=== PATIENT | male | born 1995 | race American Indian/Alaskan Native ===

== ENCOUNTER 2016-10-21 18:50 | Emergency (ER) | payer OTHER ==
[~2016-10-21] VITALS: Ht 182.9 cm; Wt 99.8 kg
[~2016-10-21 18:50] MED LIST: FLOMAX0.4 MG PO; LEVAQUIN500 MG PO; PERCOCET 5-3251 EACH PO; PYRIDIUM200 MG PO; RISPERDAL0.5 MG PO; RISPERIDONE1 MG PO; WELLBUTRIN XL150 MG PO; WELLBUTRIN XL300 MG PO
== END 2016-10-22 07:00 | disposition home or self-care (01) ==
LOC: ED 18:50
PROC: 4A0D7LZ Measurement of Urinary Volume, Via Natural or Artificial Opening (ICD-10-PCS; principal; 2016-10-21)
DX: Z00.01 Encounter for general adult medical examination with abnormal findings (principal); F10.129 Alcohol abuse with intoxication, unspecified; Y90.6 Blood alcohol level of 120-199 mg/100 ml; F32.9 Major depressive disorder, single episode, unspecified; Z87.442 Personal history of urinary calculi
CPT/HCPCS: 51798; 80053; 80176; 81001; 84443; 85025; 96360; 96361; 99283; G0480; J7030

== ENCOUNTER 2017-02-05 00:28 | Emergency (ER) | payer OTHER ==
[~2017-02-05] VITALS: Ht 182.9 cm; Wt 90.7 kg
== END 2017-02-05 01:52 | disposition home or self-care (01) ==
LOC: ED 00:28
DX: S50.01XA Contusion of right elbow, initial encounter (principal); F17.200 Nicotine dependence, unspecified, uncomplicated; Z87.442 Personal history of urinary calculi; W01.0XXA Fall on same level from slipping, tripping and stumbling without subsequent striking against object, initial encounter
CPT/HCPCS: 73080; 99283

== ENCOUNTER 2018-04-21 15:51 | Emergency (ER) | payer OTHER ==
[~2018-04-21] VITALS: Ht 182.9 cm; Wt 90.7 kg
--- NOTE | 2018-04-21 23:23 | EKG ---
[facility] [address] [facility] [place] [address] Signed Normal sinus rhythm ST abnormality and T wave inversion in Lead 3. Abnormal ECG When compared with ECG of 24-JUN-2016 18:54, Borderline criteria for Inferior infarct are now present Inverted T waves have replaced nonspecific T wave abnormality in Inferior leads T wave amplitude has decreased in Anterior leads Confirmed by BALWINDER LINK MD ([id number]) on 04/21/2018 11:23:00 PM Electronically Signed By: BALWINDER LINK MD 04/21/18 2323 PATIENT NAME: KAROLINA JACOBO Electrocardiogram DATE OF : [birth year] PHYSICIAN: BALWINDER LINK MD REPORT #: [id number] REPORT IS CONFIDENTIAL AND NOT TO BE RELEASED WITHOUT AUTHORIZATION
== END 2018-04-22 07:23 | disposition home or self-care (01) ==
LOC: ED 15:51
PROC: 0T9B70Z Drainage of Bladder with Drainage Device, Via Natural or Artificial Opening (ICD-10-PCS; principal; 2018-04-21)
DX: T14.91XA Suicide attempt, initial encounter (principal); F10.129 Alcohol abuse with intoxication, unspecified; R45.6 Violent behavior; F32.9 Major depressive disorder, single episode, unspecified; Z87.442 Personal history of urinary calculi; F17.200 Nicotine dependence, unspecified, uncomplicated
CPT/HCPCS: 51701; 70450; 71045; 72125; 72170; 80053; 81001; 82550; 84484; 85025; 93005; 93010; 96361; 96372; 96374; 99285-25; G0480; J1200; J1630; J7030

== ENCOUNTER 2018-08-20 22:58 | Emergency (ER) | payer OTHER ==
[~2018-08-20] VITALS: Ht 182.9 cm; Wt 86.2 kg
--- OUTSIDE RECORDS SUMMARY | ~2018-08-20 | XMS | Clinical Summary ---
Demographics + + + | Address | [address] | | | [place] [address] | + + + | Home Phone | | + + + | Preferred Language | Unknown | + + + | Marital Status | Single | + + + | Cheondoism Affiliation | Unknown | + + + | Race | Unknown | + + + | Ethnic Group | Unknown | + + + Author + + + | Author | [facility] [employer] | + + + | Organization | [facility] [employer] | + + + | Address | Unknown | + + + | Phone | Unavailable | + + + Support + + +---------+ + | Name | Relationship | Address | Phone | + + +---------+ + | Jacquie Baeza | ECON | Unknown | | + + +---------+ + | Renita Queen | ECON | Unknown | | + + +---------+ + Care Team Providers + +------+ + | Care Button Bradder Name | Role | Phone | + +------+ + | Dr. 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, intentional self-harm (HCC) | 09/24/2016 | + + + | Suicide risk | 09/24/2016 | + + + | Deliberate self-cutting | 09/24/2016 | + + + | Lactic acidosis | 09/24/2016 | + + + | Hypokalemia | 09/24/2016 | + + + | Morena coma scale score 3-8, at arrival to emergency department | 09/24/2016 | | (HCC) | | + + + | Toxic metabolic encephalopathy | 09/24/2016 | + + + Social History + +-------+ [...] on file | | + + + Last Filed Vital Signs + + + + | Vital Sign | Reading | Time Taken | + + + + | Blood Pressure | 163/90 | 09/26/2016 6:46 PM PDT | + + + + | Pulse | 83 | 09/26/2016 6:46 PM PDT | + + + + | Temperature | 36.7 C (98.1 F) | 09/26/2016 6:46 PM PDT | + + + + | Respiratory Rate | 20 | 09/26/2016 6:46 PM PDT | + + + + | Oxygen Saturation | 98% | 09/26/2016 6:46 PM PDT | + + + + | Inhaled Oxygen | - | - | | Concentration | | | + + + + | Weight | 109.4 kg (241 lb 2.9 | 09/24/2016 2:00 PM PDT | | | oz) | | + + + + | Height | 180.3 cm (5' 11") | 09/24/2016 2:00 PM PDT | + + + + | Body Mass Index | 33.64 | 09/24/2016 2:00 PM PDT | + + + + Plan of Treatment Not on file Results Not on filefrom Last 3 Months Insurance + +--------+ +------+-------+ + | Payer | Benefi | Subscriber | Type | Phone | Address | | | t Plan | ID | | | | | | / | | | | | | | Group | | | | | + +--------+ +------+-------+ + | MEDICAID | MEDICA | [id number] | | | [address] | | | ID | | | | [place] | | | [place] | | | | [phone] | + +--------+ +------+-------+ + + +--------+ +--------+ + + | Guarantor Name | Accoun | Relation to | Date | Phone | Billing Address | | | t Type | Patient | of | | | | | | | | | | + +--------+ +--------+ + + | KAROLINA TALAVERA | Person | Self [birth year] Home: | general delivery | | | al/Fam | | 1994 | [phone] | [place] [address] | | | hitesh | | | [birth year] | | + +--------+ +--------+ + +
--- OUTSIDE RECORDS SUMMARY | ~2018-08-20 | XMS | Clinical Summary ---
Demographics + + + | Address | [address] | | | [place] [address] | + + + | Home Phone | | + + + | Preferred Language | Unknown | + + + | Marital Status | Single | + + + | Pentecostalism Affiliation | Unknown | + + + | Race | Unknown | + + + | Ethnic Group | Unknown | + + + Author + + + | Author | [facility] [employer] | + + + | Organization | [facility] [employer] [facility] | + + + | Address [...] Team Providers + +------+ + | Care Acquisition Associate Name | Role | Phone | + [...] +------+-------+ + | MEDICAID | MEDICA | [id number] | | | [address] | | | ID | | | | [place] | | | [place] | | | | [phone] | + +--------+ +------+-------+ + + +--------+ [...] | 1994 | [phone] | [place] [address] | | | hitesh | | | [birth year] | | + +--------+ +--------+ + +
== END 2018-08-21 08:47 | disposition home or self-care (01) ==
LOC: ED 22:58
DX: F10.129 Alcohol abuse with intoxication, unspecified (principal); Z87.442 Personal history of urinary calculi; Z87.891 Personal history of nicotine dependence
CPT/HCPCS: 70450; 80053; 80176; 81001; 84443; 85025; 99284-25; G0480

== ENCOUNTER 2018-09-13 15:53 | Emergency (ER) | payer OTHER ==
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
== END 2018-09-13 17:55 | disposition home or self-care (01) ==
LOC: ED 15:53
DX: S09.90XA Unspecified injury of head, initial encounter (principal); Z87.442 Personal history of urinary calculi; Z87.891 Personal history of nicotine dependence; Y04.0XXA Assault by unarmed brawl or fight, initial encounter
CPT/HCPCS: 70450; 70490; 72125; 80053; 82150; 82550; 83690; 85025; 86850; 86900; 86901; 99283-25; G0480

== ENCOUNTER 2019-03-12 16:22 | Emergency (ER) | payer OTHER ==
[~2019-03-12] VITALS: Ht 182.9 cm; Wt 86.2 kg
--- OUTSIDE RECORDS SUMMARY | ~2019-03-12 | XMS | Encounter Summary ---
Demographics + + + | Address | [address] | | | [place] [address] | + + + | Home Phone | | + + + | Preferred Language | Unknown | + + + | Marital Status | Single | + + + | Druze Affiliation | Unknown | + + + | Race | Unknown | + + + | Ethnic Group | Unknown | + + + Author + + + | Author | [facility] | | | and [place] | + + + | Organization | [facility] | | | and [place] | + + + | Address | Unknown | + + + | Phone | Unavailable | + + + Support + + +---------+ + | Name | Relationship | Address | Phone | + + +---------+ + | Jacquie Baeza | ECON | Unknown | | + + +---------+ + Care Team Providers + +------+ + | Care Coding Quality Analyst Name | Role | Phone | + +------+ + PCP | Unavailable | + +------+ + Encounter Details +--------+ + + + + | Date | Type | Department | Care Team | Description | +--------+ + + + + | 09/24/ | Hospital | [facility] | [place], Pepe[place] | | | 2017 - | Encounter | [facility] | MD Page Galindo | | | | | CARE FLOOR [address] [place], [place] | | | 09/26/ | | [facility] | [id number] | | | 2017 | | [place], [place] | | | | | | [address] | | | | | | [phone] | | | +--------+ + + + + Social History + +-------+ +--------+------+ | Tobacco Use | Types | Packs/Day | Years | Date | | | | | Used | | + +-------+ +--------+------+ | Former Smoker | | | | | + +-------+ +--------+------+ + + + | Sex Assigned at | Date Recorded | | | | + + + | Not on file | | + + + + + + + | Job Start Date | Occupation | Industry | + + + + | Not on file | Not on file | Not on file | + + + + + + + + | Travel History | Travel Start | Travel End | + + + + + + | No recent travel history available. | + + documented as of this encounter Last Filed Vital Signs + + + + + | Vital Sign | Reading | Time Taken | Comments | + + + + + | Blood Pressure | 163/90 | 09/26/2016 6:48 PM | | | | | PDT | | + + + + + | Pulse | 83 | 09/26/2016 6:48 PM | | | | | PDT | | + + + + + | Temperature | 36.7 C (98.1 F) | 09/26/2016 6:48 PM | | | | | PDT | | + + + + + | Respiratory Rate | 20 | 09/26/2016 6:48 PM | | | | | PDT | | + + + + + | Oxygen Saturation | - | - | | + + + + + | Inhaled Oxygen | - | - | | | Concentration | | | | + + + + + | Weight | 109.4 kg (241 lb 2.9 | 09/26/2016 6:48 PM | | | | oz) | PDT | | + + + + + | Height | 180.3 cm (5' 11") | 09/26/2016 6:48 PM | | | | | PDT | | + + + + + | Body Mass Index | 33.64 | 09/26/2016 6:48 PM | | | | | PDT | | + + + + + documented in this encounter Discharge Summaries Jerod Alarcon MD - 09/26/2016 6:56 PM PDTFormatting of this note might be differ ent from the original. Discharge Summaries by Jerod Alarcon MD at 09/26/161855 Author: Jerod Alarcon MD Service: Hospitalist Author Type: Physician Filed: 09/28/16 3710 Date of Service: 09/26/161855 Status: Signed Warranty Clerk: Jerod Alarcon MD (Physician) Related Notes: Original Note by Jerod Alarcon MD (Physician) filed at 09/27/16 1441 [facility] Service: Hospitalist Discharge Summary Date of Admission: 09/24/2016 Date of Discharge: 09/26/2016 Discharge Provider: Jerod Alarcon MD Treatment Team: Admitting Provider: Paul Church MD Discharge Diagnoses: Principal Problem: Asphyxiation due to hanging, intentional self-harm (HCC) Active Problems: Suicide risk Deliberate self-cutting Lactic acidosis Hypokalemia Morena coma scale score 3-8, at arrival to emergency department Toxic metabolic encephalopathy Resolved Problems: * No resolved hospital problems. * BRIEF HISTORY OF PRESENTATION: Ponce Talavera is a 21 y.o. male who No prescriptions prior to admission He was admitted to the hospital after reported self-inflicted hanging. Per report, the justino ent was found by bystanders with a cord around the neck. EMS was called. He was intubated on site. The patient underwent CT of the neck, head, and MRI of the neck all of which were neg ative. He was extubated. The patient was stable to be discharged to the psyche unit. Psychia trist was consulted. Crisis was consulted. The patient was referred to inpatient psyche at [facility]. DISCHARGE EXAM Vital Signs: BP 163/90 mmHg | Pulse 83 | Temp(Src) 98.1 F (36.7 C) (Oral) | Resp 20 | Ht 1.803 m (5' 11") | Wt 109.4 kg (241 lb 2.9 oz) | BMI 33.65 kg/m2 | SpO2 98% Physical Exam General Appearance: awake, alert, oriented, in no acute distress Eyes: No gross abnormalities. Neck: neck- supple, no mass, non-tender Abdomen: Soft, non-tender, normal bowel sounds. No bruits, organomegaly or masses. Extremities: Extremities warm to touch, pink, with no edema. DATA Recent Labs Lab 09/25/16 0359 09/24/16 1432 WBC 11.35* 12.89* HGB 13.6 13.3 HCT 42.1 39.5 PLT 200 220 NEUTOPHILPCT 76.68 78.64 MONOPCT 10.43 8.96 Recent Labs Lab 09/25/16 1428 09/25/16 0359 09/24/16 2322 09/24/16 1432 NA -- 142 -- 143 K 3.5 3.6 3.8 3.4* CL -- 112* -- 113* CO2 -- 24 -- 22* BUN -- 6* -- 6* CREATININE -- 0.7 -- 0.75 Phosphorus: Lab Results Component Value Date PHOS 2.1* 09/25/2016 Invalid input(s): LABALBU Recent Labs Lab 09/25/16 1428 09/25/16 0359 09/24/16 1956 MG 1.8 1.9 1.5* No results for input(s): AMYLASE in the last 168 hours. No results for input(s): PHART, PO2ART, JOI9CNV, F8UCBZKM, BEART in the last 168 hours. Recent Labs Lab 09/24/16 1432 INR 1.1 No results for input(s): TSH, T3FREE, FREET4 in the last 168 hours. Recent Labs Lab 09/25/16 0359 CKTOTAL 141 Radiology Mri Cervical Spine Without Contrast 09/25/2016 1. Normal MRI of the cervical spine. Specifically no evidence of fracture, insta bility or cord lesion 2. A small amount of edema in the ventral soft tissues at the base of the neck only. 3. Maxillary sinus disease, mucosal thickening X-ray Chest 1 View 09/24/2016 1. Tubes in appropriate position. 2. No pneumothorax or infiltrate. Electronic ally signed by Chin Murphy MD on 09/24/2016 2:28 PM Disposition: Home Condition: Stable Code Status: Prior No discharge procedures on file. Follow up: Per Pt None Medication List Notice You have not been prescribed any medications. Discharge took 35 minutes, to include final examination, discussion of admission, and prepa ration of prescriptions, instructions for on-going care, follow-up and documentation of disc harge summary. Jerod Alarcon MD 09/27/2016 2:40 PM documented in this encounter Progress Notes Conversion Transaction, Provider Unknown - 09/26/2016 6:32 PM PDTFormatting of this note m ight be different from the original. Nurse Progress Note by Jennifer Alcazar RN at 09/26/16 1832 Author: Jennifer Alcazar RN Service: (none) Author Type: Registered Nurse Filed: 09/26/161833 Date of Service: 09/26/161831 Status: Signed Warranty Clerk: Jennifer Alcazar RN (Registered Nurse) Patient discharged to [facility] with Crisis Response. IV's removed, discharge papers given. P er Dr Alarcon no medications for discharge. Patient ready to go when Crisis is ready to doretha e them. Will monitor until he leaves the floor. Jennifer Alcazar RN onver brittnee Transaction, Provider Unknown - 09/26/2016 3:08 PM PDT Case Management by Annie Barajas RN at 09/26/16 6748 Author: Annie Barajas RN Service: (none) Author Type: Registered Nurse Filed: 09/26/16 0303 Date of Service: 09/26/16 150 Status: Signed Warranty Clerk: Annie Barajas RN (Registered Nurse) 10:20 AM Rounded on this pt this morning. Transferred care to hospitalist, psychiatrist c onsulting, when notified will call CRU. 15:05 Called Crisis Response, , fax [phone], to inform them of pt's medic ally stable status and need for their review. Faxed progress notes and labs per their reque st. onver brittnee Transaction, Provider Unknown - 09/26/2016 6:28 AM PDT Nurse Progress Note by Cindy Bennett RN at 09/26/16627 Author: Cindy Bennett RN Service: (none) Author Type: Registered Nurse Filed: 09/26/16640 Date of Service: 09/26/16627 Status: Signed Warranty Clerk: Cindy Bennett RN (Registered Nurse) Patient denies suicidal ideation at this time. He reports that he does not want to do inpat ient rehabilitation anywhere but wants to follow up with a counselor outpatient. onver brittnee Transaction, Provider Unknown - 09/26/2016 12:55 AM PDT Nurse Progress Note by Pretty Lloyd RN at 09/26/1654 Author: Pretty Lloyd RN Service: Retail Helper Author Type: Registered Nurse Filed: 09/26/166 Date of Service: 09/26/1654 Status: Signed Warranty Clerk: Pretty Lloyd RN (Registered Nurse) Care transitioned to Cindy MENDEZ in acute care, pt to remain in current room at this time. No questions noted. Donaldo Mcadams MD - 09/25/2016 10:40 PM PDTFormatting of this note might be different f rom the original. Progress Notes by Donaldo Soto MD at 09/25/162239 Author: Donaldo Soto MD Service: Internal Medicine Author Type: Physician Filed: 09/25/162246 Date of Service: 09/25/162239 Status: Signed Warranty Clerk: Donaldo Soto MD (Physician) Brief Medicine Progress Note: Patient was transferred to the medicine service from the Retail Helper. Patient briefly seen and examined by me personally today. He presented after a suicide attempt after attempting to hang himself. Refer to the Admissi on H&P and progress notes for full details. He was intubated initially after being found with a GCS of 8. He was reportedly extubated o n 09/24/2016. This was his 5th suicide attempt. He remains with active suicidal ideations. C-spine has been cleared. Refer to Dr. Barrera's note for full details. Brief Assessment and Plan: He remains a very high suicide risk and has active suicidal ideations. Psychiatry evaluated patient today. He will need inpatient psych placement. He is refusing voluntary placement at this point. Crisis will evaluate him tomorrow now that he is medically clear CM consult He may need a legal guardian, as Dr. Barrera has documented. Continue 1:1 sitter for safety with suicide precautions. anelle Barrera MD - 09/25/2016 9:25 PM PDT Progress Notes by Janelle Barrera MD at 09/25/162124 Author: Janelle Barrera MD Service: Retail Helper Author Type: Physician Filed: 09/25/162151 Date of Service: 09/25/162124 Status: Addendum Warranty Clerk: Janelle Barrera MD (Physician) Related Notes: Original Note by Janelle Barrera MD (Physician) filed at 09/25/162150 [facility] Service: Retail Helper Addendum Patient was seen and evaluated. Dr. Tommy Cedillo the psychiatrist evaluated the patien t today and offered him inpatient treatment, the patient told him he would think about it. I discussed with the patient the importance of inpatient psychiatric care but he is refusing inpatient here in [place] and would like to be closer to home. His mom stated that he vlade r followed up with psychiatry as an outpatient and recommended he go to inpatient psych at t his time. He very clearly stated to me that "I will be attempting suicide again because I wa nt to hurt many people. I promised I was going to do it so I am going to go through with it. ". Crisis will be coming to evaluate him now that he has been medically cleared. Assessment: Patient is a high suicide risk as he is stating that he will attempt suicide again -In patient psychiatry -I strongly recommend this patient be assigned a legal guardian by the court as he is not a ble to make sound decisions himself, case management consult I have spoken with the hospitalist Dr. Azevedo who agrees to accept the patient . Total time spent evaluating the patient 15 mins. onversion Transaction, Provider Unknown - 09/25/2016 5:55 PM PDTFormatting of this note might be different from th e original. Nurse Progress Note by Sarina Odell RN at 09/25/161754 Author: Sarina Odell RN Service: (none) Author Type: Registered Nurse Filed: 09/25/161755 Date of Service: 09/25/16 175 Status: Signed Warranty Clerk: Sarina Odell RN (Registered Nurse) Cervical collar removed after MRI report received by . Pt walked to bathroom with on dif ficulties. Jean Baptiste removed. Pt visiting with family. onver brittnee Transaction, Provider Unknown - 09/25/2016 3:01 PM PDT Therapy Progress Note by Perez Benítez PT at 09/25/16 1501 Author: Perez Benítez PT Service: (none) Author Type: Physical Therapist Filed: 09/25/16 1501 Date of Service: 09/25/16 1501 Status: Signed Warranty Clerk: Perez Benítez PT (Physical Therapist) 09/25/16 1500 PT Last Visit PT Received On 09/25/16 Requires PT Follow Up On hold Other Comments Comments Talked with ANDREA Branch and she wants to hold until MRI which is scheduled for 4, tasha l follow up as census permits. onver brittnee Transaction, Provider Unknown - 09/25/2016 9:52 AM PDT Case Management by JAI Correa at 09/25/16 0952 Author: JAI Correa Service: (none) Author Type: Instant Printer Operator Filed: 09/25/16 1000 Date of Service: 09/25/16 0952 Status: Signed Warranty Clerk: JAI Correa (Instant Printer Operator) 09/25/16 0935 Discharge Planning Evaluation Admitting Diagnosis suicide attempt Readmission Yes-within 14 days (Admitted to [facility] for sucide attempt 2 days ago) Last discharge disposition Other (comment) (homeless; d/c'd too streets) Assistance available No Living Arrangements Alone Type of Residence Homeless Independent with ADL's Yes Independent with Mobility Yes Home Care Services No Caregiver after Discharge No Mental Status Oriented Prior functional status Independent prior to admit Anticipated Discharge Plan Plan communicated to patient/family Yes Resources Financial concerns No Transportation issues No Patient/Family concerns No Prescription Plan No Anticipated Disposition Facility Type Other (Comment) (Likely will be detained or go to In Pt Psych voluntarily) Met with: patient as well as his mother and friends and discussed discharge planning, Pt is a 21 y.o., male admitted with attempted suicide att empt by hanging. Pt states that he is homeless. He couch surfs at friends places. He states that he binge dr inks for 3 weeks when he drinks. He smokes MJ. He recently attempted suicide by "stabbing h imself in the neck with a razor blade" 3 days ago and was admitted to [facility]. He was evaluated by there and referred to [facility]. He states that he has no phone and has no one to call when his "thoughts start to race and he thinks negatively". He has a hx of In PT Psychiatric hospitalizations starting at age 16. He was in an [place] facility at age 16 and a [facility] facility at age 19. Pt's mother was present in the room. She reportedly just got out of prison in [place]. She l heraclio in [place]. Pt's father is reportedly not involved. Pt's sister was in the room and pablo ears to be a teenager and appears to be developmentally delayed. Pt has no income. Unemployed. States that he eats at the [employer] once every day. Pt had 2 friends from [place] in the room (females) who state that they plan to "check on pt every 2 days". They have offered to help pt with a phone. Friend Renita Rojas- . Explained process for pt to be evaluated by Psych and then CRU. Provided pt with Suicide v ideo and brochure and provided pt's friends/family with Suicide brochure. Patient's PCP is: PER PT NONE Patient's insurance: Uninsured. PFS to see. Coverage concerns: Medication coverage/concerns: [facility] Delivery: Community resources utilized / needed: Assistance in transportation: TBD Identification of any specific education / training: Was referred to [facility] for Out Pt Ps yc Barriers to Discharge / Alternative housing needed: Anticipated DCP: Psych to eval. CRU to eval and make d/c recommendations SHENG BARFIELD Janelle Costa MD - 09/25/2016 4:31 AM PDTFormatting of this note might be different from the origi nal. Progress Notes by Janelle Barrera MD at 09/25/16430 Author: Janelle Barrera MD Service: Retail Helper Author Type: Physician Filed: 09/25/162108 Date of Service: 09/25/16430 Status: Signed Warranty Clerk: Janelle Barrera MD (Physician) [facility] Service: Retail Helper Progress Note Ponce Talavera 21 y.o. Hospital Day: LOS: 1 day Post-Op Day: * No surgery found * Consulting Physicians Treatment Team: Admitting Provider: Paul Church MD SUBJECTIVE Patient Summary: 21 M with PMH of multiple suicide attempts admitted s/p attempted de la torre icide by hanging. Found down by bystanders with a cord around his neck that was apparently b roken from an attempted hanging. Intubated for GCS 8. ICU Timeline: 09/25/16: Extubated, on room air Events Overnight: Patient extubated. SCHEDULED MEDICATIONS docusate sodium 100 mg Oral BID Or docusate 100 mg Per OG Tube BID enoxaparin 40 mg Subcutaneous Q24H famotidine 20 mg Oral Daily Or famotidine 20 mg Intravenous Daily folic acid (FOLVITE) IVPB 1 mg Intravenous Daily Or multivitamin & minerals w iron/FA 1 tablet Oral Daily thiamine (VITAMIN B1) IVPB 100 mg Intravenous Q24H Or thiamine 100 mg Oral Q24H CONTINUOUS INFUSIONS dextrose OBJECTIVE VITAL SIGNS Temp: [97.4 F (36.3 C)-98 F (36.7 C)] 97.4 F (36.3 C) Heart Rate: [40-71] 66 Resp: [12-18] 18 BP: (116-141)/(50-78) 138/66 mmHg FiO2 : [25 %-30 %] 25 % Intake/Output Summary (Last 24 hours) at 09/25/16431 Last data filed at 09/24/16 1816 Gross per 24 hour Intake 788 ml Output 552 ml Net 236 ml EXAM GEN: awake, alert, oriented x3, NAD NEURO: PERRLA, EOMI, no facial asymmetry, moves all extremities well GCS: 15 HEENT: sclerae clear, nonicteric, oral mmm, pink, no exudates NECK: C collar in place, tenderness of anterior neck CV: RRR, S1/S2, no murmur, rub or gallop, peripheral pulses palpable, cap refill brisk LUNGS: clear b/l, no wheezing, rales or rhonchi, symmetric chest expansion, even/unlabored respirations ABD: soft, nondistended, nontender to palpation, no masses, no hepatosplenomegaly EXTR: no edema, clubbing or cyanosis SKIN: Multiple old scars UE and LE from cutting. Bilateral UE lacerations LINES/TUBES: PIV, jean baptiste DATA Recent Labs Lab 09/24/16 1432 WBC 12.89* RBC 4.36 HGB 13.3 HCT 39.5 MCV 90.4 MCH 30.4 MCHC 33.6 RDW 45.9 PLT 220 MPV 7.9 NEUTROABS 10.13* LYMPHSABS 1.55 MONOSABS 1.15* BASOSABS 0.01 EOSABS 0.04 Recent Labs Lab 09/24/16 2322 09/24/16 1956 09/24/16 1432 NA -- -- 143 K 3.8 -- 3.4* CL -- -- 113* CO2 -- -- 22* ANIONGAP -- -- 11 GLUF -- -- 80 BUN -- -- 6* CREATININE -- -- 0.75 BCR -- -- 9 CA -- -- 8.3* EGFR -- -- >60 PHOS -- -- 2.4 MG -- 1.5* 1.8 Recent Labs Lab 09/24/16 1432 INR 1.1 IMAGING X-ray Chest 1 View 09/24/2016 1. Tubes in appropriate position. 2. No pneumothorax or infiltrate. Electronic ally signed by Chin Murphy MD on 09/24/2016 2:28 PM PROBLEM LIST Principal Problem: Asphyxiation due to hanging, intentional self-harm (HCC) Active Problems: Suicide risk Deliberate self-cutting Lactic acidosis Hypokalemia Morena coma scale score 3-8, at arrival to emergency department Toxic metabolic encephalopathy Resolved Problems: * No resolved hospital problems. * ASSESSMENT & PLAN NEURO: Suicide attempt, GCS 15 Psychiatry consult High risk for suicide, sitter ordered MRI of neck, patient complaining of neck pain, most likely related to soft tissue trauma but must rule out any ligamentous injury CV: No acute abnormalities PULM: Acute hypoxic respiratory failure, GCS <8 Patient extubated overnight and doing well GI/NUTRITION: No acute abnormalities Regular diet DC famotidine RENAL/LYTES: No acute abnormality ID: No acute abnormality HEME: No acute abnormality ENDO: No acute abnormality MUSC/SKIN: Multiple lacerations to upper extremities Wound care consult PROPHYLAXIS: Stress ulcer prophylaxis: None DVT prophylaxis: Lovenox Disposition: General medical floor later today Code Status: Full Code *Please bill 45 minutes of critical care time spent evaluating the patient, reviewing the d jaiden and formulating a plan exclusive of all other procedures. Janelle Barrera MD 09/25/2016 onversion Transaction, Provider Unknown - 09/25/2016 12:34 AM PDTFormatting of this note might be different from th e original. Progress Notes by Sheryl Poole RRT at 09/25/1633 Author: Sheryl Poole RRT Service: (none) Author Type: Registered Respiratory Therap ist Filed: 09/25/1635 Date of Service: 09/25/1633 Status: Signed Warranty Clerk: Sheryl Poole RRT (Registered Respiratory Therapist) Patient Extubated to Room Air. No distress note. RN and Retail Helper in room. onver brittnee Transaction, Provider Unknown - 09/24/2016 9:07 PM PDT Progress Notes by Sheryl Poole RRT at 09/24/162106 Author: Sheryl Poole RRT Service: (none) Author Type: Registered Respiratory Therap ist Filed: 09/24/162106 Date of Service: 09/24/162106 Status: Signed Warranty Clerk: Sheryl Poole RRT (Registered Respiratory Therapist) + cuff leak onver brittnee Transaction, Provider Unknown - 09/24/2016 5:29 PM PDT Case Management by Annie Barajas RN at 09/24/16 4937 Author: Annie Barajas RN Service: (none) Author Type: Registered Nurse Filed: 09/24/161736 Date of Service: 09/24/161728 Status: Signed Warranty Clerk: Annie Barajas RN (Registered Nurse) Met w/pt's friends Renita Rojas [phone] and Leann Ibarra [phone] who have been att empting to reach pt's parents through social media. Mother Jacquie Vargas [phone] chepe es in [place] and will be driven her by her sister after her sister gets off work, should arr shayla by 19-19:30. Pt's father is Michael Talavera and his father's aunt is Jessica. It is reported pt has only been in touch with his mother this past year claiming she was invol boy in drugs and jailed and that he had not been in touch with his father at all. It is als o reported that pt was disappointed that his multiple suicide attempts have failed and that his friend completed his attempt successfully the first time 3 weeks ago. Pt has said he "d oesn't want to be a burden". His friends state he has been drinking heavily, using pot, and has been off "dope" for 3 years. Spoke with house worker at [facility] who is faxing pt information to the ICU floor f rom his recent hospitalization and discharge two days ago from a suicide attempt. This information was reported to the ICU EDIL Shafer. onver brittnee Transaction, Provider Unknown - 09/24/2016 5:14 PM PDT Nurse Progress Note by Meeta Pineda RN at 09/24/161713 Author: Meeta Pineda RN Service: (none) Author Type: Registered Nurse Filed: 09/24/161721 Date of Service: 09/24/161713 Status: Signed Warranty Clerk: Meeta Pineda RN (Registered Nurse) Officer Israel from the [facility] [employer] department called with a name of what he thinks is the the pts mother, Jacquie Vargas from [place] [phone]. This person did call myse lf ([facility]) and stated she would like to come here and see if this is her son. I encouraged th is and she knows to call [facility] phone for assistance. She will try to get a ride tonight. onver brittnee Transaction, Provider Unknown - 09/24/2016 4:48 PM PDT Progress Notes by Savi Foster RPH at 09/24/161647 Author: Savi Foster RPH Service: Pharmacy Author Type: Pharmacist Filed: 09/24/161647 Date of Service: 09/24/161647 Status: Signed Warranty Clerk: Savi Foster RPH (Pharmacist) Clinical Pharmacy Note: Renal Monitoring Mary Trauma 89 y.o. male Ht Readings from Last 1 Encounters: 09/24/16 1.803 m (5' 11") Wt Readings from Last 1 Encounters: 09/24/16 109.4 kg (241 lb 2.9 oz) CREATININE: 0.75 (09/24/16 1432) Estimated creatinine clearance - 32.9 mL/min Pharmacy dosing for renal function per Dr. Church. Currently, there are no medications needing to be adjusted. Pharmacy will continue to monit or for changes in medication orders and in renal function and adjust accordingly. Savi Foster PharmD 09/24/2016 4:48 PM onver brittnee Transaction, Provider Unknown - 09/24/2016 3:09 PM PDT Therapy Progress Note by Jeanne Dick PT at 09/24/16 1509 Author: Jeanne Dick PT Service: (none) Author Type: Physical Therapist Filed: 09/24/16 1510 Date of Service: 09/24/16 150 Status: Signed Warranty Clerk: Jeanne Dick PT (Physical Therapist) 09/24/16 1509 PT Last Visit PT Received On 09/24/16 Requires PT Follow Up On hold Other Comments Comments Pt intubated and sedated. Will hold PT at this time. docume nted in this encounter Plan of Treatment Not on filedocumented as of this encounter Procedures + +--------+ + + + | Procedure Name | Priori | Date/Time | Associated Diagnosis | Comments | | | ty | | | | + +--------+ + + + | URINALYSIS WITH | Routin | 09/26/2016 | | Results for this | | MICROSCOPIC IF | e | 4:48 PM | | procedure are in the | |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 City/State/Zipcode | Phone Number | | Organization | | | | + +---------+ + + | EXTERNAL LAB | | | | + +---------+ + + Lactic Acid (09/24/2016 2:32 PM PDT) + + + + + + | Component | Value | Ref Range | Performed | Pathologist | | | | | At | Signature | + + + + + + | Lactate | 1.0Comment: Testing | 0.4 - 2.0 | EXTERNAL | | | | performed at [facility];888 | mmol/L | LAB | | | | [address];[place], [place] | | | | | | [address] | | | | + + + + + + + + | Specimen | + + | Blood specimen | | (specimen) | + + + +---------+ + + | Performing | Address | City/State/Zipcode | Phone Number | | Organization | | | | + +---------+ + + | EXTERNAL LAB | | | | + +---------+ + + Basic Metabolic Panel (09/24/2016 2:32 PM PDT) + + + + + + | Component | Value | Ref Range | Performed | Pathologist | | | | | At | Signature | + + + + + + | Na | 143 | 135 - 145 | EXTERNAL | | | | | mmol/L | LAB | | + + + + + + | K | 3.4 (L) | 3.5 - 4.9 | EXTERNAL | | | | | mmol/L | LAB | | + + + + + + | Cl | 113 (H) | 99 - 109 mmol/L | EXTERNAL | | | | | | LAB | | + + + + + + | CO2 | 22 (L) | 23 - 32 mmol/L | EXTERNAL | | | | | | LAB | | + + + + + + | Anion Gap | 11 | 5 - 20 mmol/L | EXTERNAL | | | | | | LAB | | + + + + + + | Glucose, | 80 | 65 - 99 mg/dL | EXTERNAL | | | Fasting | | | LAB | | + + + + + + | BUN | 6 (L) | 8 - 25 mg/dL | EXTERNAL | | | | | | LAB | | + + + + + + | Creatinine | 0.75 | 0.70 - 1.30 | EXTERNAL | | | | | mg/dL | LAB | | + + + + + + | BUN/Creatin | 9 | | EXTERNAL | | | ine Ratio | | | LAB | | + + + + + + | Calcium | 8.3 (L) | 8.5 - 10.5 | EXTERNAL | | | | | mg/dL | LAB | | + + + + + + | Estimated | >60Comment: GFR <60: | mL/min/1.73m2 | EXTERNAL | | | GFR | CHRONIC KIDNEY DISEASE, | | LAB | | | | IF FOUND OVER A 3 MONTH | | | | | | PERIOD.GFR <15: KIDNEY | | | | | | FAILURE.FOR | | | | | | AMERICANS, MULTIPLY THE | | | | | | CALCULATED GFR BY | | | | | | 1.210.Testing performed | | | | | | at [facility];[address] [place] [address] | | | | | | [facility];[place] [address] | | | | + + + + + + + + | Specimen | + + | Blood specimen | | (specimen) | + + + +---------+ + + | Performing | Address | City/State/Zipcode | Phone Number | | Organization | | | | + +---------+ + + | EXTERNAL LAB | | | | + +---------+ + + XR Chest 1 Vw (09/24/2016 2:26 PM PDT) + + | Specimen | + + | | + + + + + | Impressions | Performed At | + + + | 1. Tubes in appropriate position. 2. No pneumothorax or | | | infiltrate. Electronically signed by Chin Murphy MD on | | | 09/24/2016 2:28 PM | | + + + + + + | Narrative | Performed At | + + + | HISTORY: Asphyxiation. COMPARISON: None. TECHNIQUE: AP | | | portable film of the chest at 1419 hours FINDINGS: Heart size is | | | normal. Lungs are clear. ET tube tip 5 cm above the radha. NG tube | | | extends into the stomach and the tip is in the antrum. Lung volumes | | | are low. No infiltrates or effusions. | | + + + + -----+ | Procedure Note | + -----+ | Elian, Rad Conversion - 11/12/2018 9:04 AM PDT HISTORY:Asphyxiation. COMPARISON:None. | | TECHNIQUE:AP portable film of the chest at 1419 hours FINDINGS:Heart size is normal. | | Lungs are clear. ET tube tip 5 cm above the radha. NG tube extends into the stomach and | | the tip is in the antrum. Lung volumes are low. No infiltrates or effusions. | | IMPRESSION: 1. Tubes in appropriate position.2. No pneumothorax or infiltrate. | | | |TECHNIQUE: | |AP portable film of the chest at 1419 hours | | | |FINDINGS: | |Heart size is normal. Lungs are clear. ET tube tip 5 cm above the radha. NG tube extends i nto the stomach and the tip is in the antrum. Lung volumes are low. No infiltrates or effusi ons. | | | |IMPRESSION: | |1. Tubes in appropriate position. | |2. No pneumothorax or infiltrate. | | | | | + -----+ MRSA NAAT (09/24/2016 2:20 PM PDT) + + | Specimen | + + | | + + + + + | Narrative | Performed At | + + + | SOURCE NARES(NOSE) MRSA | EXTERNAL LAB | | PCR NEGATIVE Testing | | | performed at [facility];[address] [place] [address];[place] [address] | | + + + + +---------+ + + | Performing | Address | City/State/Zipcode | Phone Number | | Organization | | | | + +---------+ + + | EXTERNAL LAB | | | | + +---------+ + + documented in this encounter Visit Diagnoses Not on filedocumented in this encounter
--- OUTSIDE RECORDS SUMMARY | ~2019-03-12 | XMS | Encounter Summary ---
Demographics + + + | Address | [address] | | | [place] [address] | + + + | Home Phone | | + + + | Preferred Language | Unknown | + + + | Marital Status | Single | + + + | Yarsanism Affiliation | Unknown | + + + | Race | Unknown | + + + | Ethnic Group | Unknown | + + + Author + + + | Author | [facility] | | | and [place] | + + + | Organization | [facility] | | | and [...] Team Providers + +------+ + | Care Log Loader Name | Role | Phone | + +------+ + PCP | Unavailable | + +------+ + Encounter Details +--------+ + + + + | Date | Type | Department | Care Team | Description | +--------+ + + + + | 09/24/ | Hospital | [facility] IP | Conversion | Diagnosis unknown | | 2016 | Encounter | CONVERSION DEP [address] | Transaction, | | | | | [address] | Provider Unknown | | | | | [place] | | | | | | [phone] | (Fax) | | | | | | | | +--------+ + + + + Social History + +-------+ +--------+------+ | Tobacco Use | Types | Packs/Day | Years | Date | | | | | Used | | + +-------+ +--------+------+ | Never Assessed | | | | | + +-------+ [...] + + documented as of this encounter Plan of Treatment Not on filedocumented as of this encounter Procedures + +--------+ + + + | Procedure Name | Priori | Date/Time | Associated Diagnosis | Comments | | | ty | | | | + +--------+ + + + | CT HEAD WO CONTRAST | Routin | 09/24/2016 | | Results for this | | | e | 11:42 AM | | procedure are in the | | | | PDT | | results section. | + +--------+ + + + documented in this encounter Results CT Head wo Contrast (09/24/2016 11:42 AM PDT) + + | Specimen | + + | | + + + + + | Narrative | Performed At | + + + | This is a non-reportable procedure without a radiologist report and | | | is used for image storage only | | + + + + + | Procedure Note | + + | Dusty Plummer Conversion - 11/12/2018 9:04 AM PDT This is a non-reportable procedure | | without a radiologist report and isused for image storage only | + + documented in this encounter Visit Diagnoses + + | Diagnosis | + + | Diagnosis unknown Other unknown and unspecified cause of morbidity or mortality | + + documented in this encounter"
--- OUTSIDE RECORDS SUMMARY | ~2019-03-12 | XMS | Encounter Summary ---
Demographics + + + | Address | [address] | | | [place] [address] | + + + | Home Phone | | + + + | Preferred Language | Unknown | + + + | Marital Status | Single | + + + | Anabaptism Affiliation | Unknown | + + + | Race | Unknown | + + + | Ethnic Group | Unknown | + + + Author + + + | Author | [facility] | | | and [place] | + + + | Organization | [facility] | | [...] Team Providers + +------+ + | Care Strategy Lead Name | Role | Phone | + +------+ + PCP | Unavailable | + +------+ + Encounter Details +--------+ + + + + | Date | Type | Department | Care Team | Description | +--------+ + + + + | 09/24/ | Hospital | [facility] GENER[facility] IP | Conversion | Diagnosis unknown | | 2016 | Encounter | CONVERSION DEP [address] | Transaction, | | | | | [place] | Provider Unknown | | | | | [place] | | | | | | [phone] | (Fax) | | | | | [...] + + documented in this encounter Results XR Chest 1 Vw (09/24/2016 11:42 AM PDT) + + | [...]
--- OUTSIDE RECORDS SUMMARY | ~2019-03-12 | XMS | Encounter Summary ---
Demographics + + + | Address | [address] | | | [place] [address] | + + + | Home Phone | | + + + | Preferred Language | Unknown | + + + | Marital Status | Single | + + + | Restoration Affiliation | Unknown | + + + | Race | Unknown | + + + | Ethnic Group | Unknown | + + + Author + + + | Author | [facility] | | | and [place] | + + + | Organization | [facility] | | | and [...] Team Providers + +------+ + | Care Editor In Chief Newspaper Name | Role | Phone | + +------+ + PCP | Unavailable | + +------+ + Encounter Details +--------+ + + + + | Date | Type | Department | Care Team | Description | +--------+ + + + + | 09/24/ | Hospital | [facility] | [place], [place] | | | 2017 - | Encounter | [facility] | MD Page Galindo | | | | | CARE FLOOR [address] [place], [place] | | | 09/26/ | | [facility] | [address] | | | 2017 | | [place], [place] | | | | | | [address] | | | | | | [phone] | | | +--------+ + + + [...] Service: Hospitalist Author Type: Physician Filed: 09/28/16 0502 Date of Service: 09/26/161855 Status: Signed Template Cutter: Jerod Alarcon MD (Physician) Related Notes: Original Note by Jerod Alarcon MD (Physician) filed at 09/27/16 1441 [facility] Service: Hospitalist Discharge Summary Date of [...] patient was referred to inpatient psyche at [facility]. DISCHARGE EXAM Vital Signs: BP 163/90 mmHg [...] hours. No results for input(s): PHART, PO2ART, KFI7RLW, R5JCARYI, BEART in the last 168 hours. Recent [...] 09/26/161833 Date of Service: 09/26/161831 Status: Signed Template Cutter: Jennifer Alcazar RN (Registered Nurse) Patient discharged to [facility] with [facility]. IV's removed, discharge papers given. P er Dr Alarcon no medications for discharge. Patient ready to go when Crisis is ready to doretha e them. Will monitor until he leaves the floor. Jennifer Alcazar RN onver brittnee Transaction, Provider Unknown - 09/26/2016 3:08 PM PDT Case Management by Annie Barajas RN at 09/26/16 3422 Author: Annie Barajas RN Service: (none) Author Type: Registered Nurse Filed: 09/26/16 7193 Date of Service: 09/26/16 150 Status: Signed Template Cutter: Annie Barajas RN (Registered Nurse) 10:20 AM Rounded on this pt this morning. Transferred care to hospitalist, psychiatrist c onsulting, when notified will call CRU. 15:05 Called Crisis Response, , fax [phone], to inform them of pt's medic ally stable status and need for their review. Faxed progress notes and labs per their reque st. onver brittnee Transaction, Provider Unknown - 09/26/2016 6:28 AM PDT Nurse Progress Note by Cindy Bennett RN at 09/26/16627 Author: Cindy Bennett RN Service: (none) Author Type: Registered Nurse Filed: 09/26/16640 Date of Service: 09/26/16627 Status: Signed Template Cutter: Cindy Bennett RN (Registered Nurse) Patient denies suicidal ideation at this time. He reports that he does not want to do inpat ient rehabilitation anywhere but wants to follow up with a counselor outpatient. onver brittnee Transaction, Provider Unknown - 09/26/2016 12:55 AM PDT Nurse Progress Note by Pretty Lloyd RN at 09/26/1654 Author: Pretty Lloyd RN Service: Digital Media Analyst Author Type: Registered Nurse Filed: 09/26/166 Date of Service: 09/26/1654 Status: Signed Template Cutter: Pretty Lloyd RN (Registered Nurse) Care transitioned [...] 09/25/162246 Date of Service: 09/25/162239 Status: Signed Template Cutter: Donaldo Soto MD (Physician) Brief Medicine Progress Note: Patient was transferred to the medicine service from the Digital Media Analyst. Patient briefly seen and examined by me [...] at 09/25/162124 Author: Janelle Barrera MD Service: Digital Media Analyst Author Type: Physician Filed: 09/25/162151 Date of Service: 09/25/162124 Status: Addendum Template Cutter: Janelle Barrera MD (Physician) Related Notes: Original Note by Janelle Barrera MD (Physician) filed at 09/25/162150 [facility] Service: Digital Media Analyst Addendum Patient was seen and evaluated. Dr. Tommy Cedillo the psychiatrist evaluated the patien t today and offered him inpatient treatment, the patient told him he would think about it. I discussed with the patient the importance of inpatient psychiatric care but he is refusing inpatient here in [place] and would like to be closer to [...] Date of Service: 09/25/16 175 Status: Signed Template Cutter: Sarina Odell RN (Registered Nurse) Cervical collar [...] Date of Service: 09/25/16 1501 Status: Signed Template Cutter: Perez Benítez PT (Physical Therapist) 09/25/16 1500 [...] Author: JAI Correa Service: (none) Author Type: Loss Prevention Investigator Filed: 09/25/16 1000 Date of Service: 09/25/16 0952 Status: Signed Template Cutter: JAI Correa (Loss Prevention Investigator) 09/25/16 0935 Discharge Planning Evaluation Admitting Diagnosis suicide attempt Readmission Yes-within 14 days (Admitted to [facility] for sucide attempt 2 days ago) Last [...] 3 days ago and was admitted to [facility]. He was evaluated by there and referred to [facility]. He states that he has no phone and has no one to call when his "thoughts start to race and he thinks negatively". He has a hx of In PT Psychiatric hospitalizations starting at age 16. He was in an [place] facility at age 16 and a [place] facility at age 19. Pt's mother was present in the room. She reportedly just got out of alf in [place]. She l heraclio in [place]. Pt's father is reportedly not involved. Pt's sister was in the room and pablo ears to be a teenager and appears to be developmentally delayed. Pt has no income. Unemployed. States that he eats at the [employer] once every day. Pt had 2 friends from [place] in the room (females) who state that they plan to "check on pt every 2 days". They have offered to help pt with a phone. Friend Renita Rojas- [phone]. Explained process for pt to be evaluated [...] specific education / training: Was referred to [facility] for Out Pt Ps yc Barriers to Discharge / Alternative housing needed: Anticipated DCP: Psych to eval. CRU to eval and make d/c recommendations SHENG BARFIELD Janelle Costa MD - 09/25/2016 4:31 AM PDTFormatting of this note might be different from the origi nal. Progress Notes by Janelle Barrera MD at 09/25/16430 Author: Janelle Barrera MD Service: Digital Media Analyst Author Type: Physician Filed: 09/25/162108 Date of Service: 09/25/16430 Status: Signed Template Cutter: Janelle Barrera MD (Physician) [facility] Service: Digital Media Analyst Progress Note [facility] [...] 09/25/1635 Date of Service: 09/25/1633 Status: Signed Template Cutter: Sheryl Poole RRT (Registered Respiratory Therapist) Patient Extubated to Room Air. No distress note. RN and Digital Media Analyst in room. onver brittnee Transaction, Provider Unknown - 09/24/2016 9:07 PM PDT Progress Notes by Sheryl Poole RRT at 09/24/162106 Author: Sheryl Poole RRT Service: (none) Author Type: Registered Respiratory Therap ist Filed: 09/24/162106 Date of Service: 09/24/162106 Status: Signed Template Cutter: Sheryl Poole RRT (Registered Respiratory Therapist) + cuff leak onver brittnee Transaction, Provider Unknown - 09/24/2016 5:29 PM PDT Case Management by Annie Barajas RN at 09/24/16 8584 Author: Annie Barajas RN Service: (none) Author Type: Registered Nurse Filed: 09/24/161736 Date of Service: 09/24/161728 Status: Signed Template Cutter: Annie Barajas RN (Registered Nurse) Met w/pt's friends Renita Rojas [phone] and Leann Ibarra [phone] who have been att empting to reach pt's parents through social media. Mother Jacquie Vargas [phone] chepe es in [place] and will be driven her by her [...] off "dope" for 3 years. Spoke with warehouse technician at [facility] who is faxing pt information to the ICU floor f rom his recent hospitalization and discharge two days ago from a suicide attempt. This information was reported to the ICU EDIL Shafer. onver brittnee Transaction, Provider Unknown - 09/24/2016 5:14 PM PDT Nurse Progress Note by Meeta Pineda RN at 09/24/161713 Author: Meeta Pienda RN Service: (none) Author Type: Registered Nurse Filed: 09/24/161721 Date of Service: 09/24/161713 Status: Signed Template Cutter: Meeta Pineda RN (Registered Nurse) Officer Israel from the [facility] [employer] department called with a name of what he thinks is the the pts mother, Jacquie Vargas from [place] [phone]. This person did call myse lf ([facility]) and stated she would like to come here and see if this is her son. I encouraged th is and she knows to call [facility] phone for assistance. She will try to get a ride tonight. onver brittnee Transaction, Provider Unknown - 09/24/2016 4:48 PM PDT Progress Notes by Savi Foster RPH at 09/24/161647 Author: Savi Foster RPH Service: Pharmacy Author Type: Pharmacist Filed: 09/24/161647 Date of Service: 09/24/161647 Status: Signed Template Cutter: Savi Foster RPH (Pharmacist) Clinical Pharmacy Note: [...] Date of Service: 09/24/16 150 Status: Signed Template Cutter: Jeanne Dick PT (Physical Therapist) 09/24/16 1509 [...] + + + + | Color | EDIDE | | EXTERNAL | | | | | | LAB | | + + + + + + | Clarity | TURBID | | EXTERNAL | | | | | | LAB | | + + + + + + | Specific | 1.016 | 1.002 - 1.030 | EXTERNAL | | | [place] | | | LAB | | + [...] | | | CRYSTAL | performed at [facility];[address] | | LAB | | | | [address];[place] | | | | | | [address] | | | | + + + [...] EXTERNAL | | | | performed at [facility];888 | mmol/L | LAB | | | | [address];[place], [place] | | | | | | [address] | | | | + + + [...] EXTERNAL | | | | performed at [facility];[address] | | LAB | | | | [address];[place], [place] | | | | | | [address] | | | | + + + [...] | | | Basophils | performed at [facility] [address], [address] | K/uL | LAB | | | | [address], | | | | | | [place] [address] | | | | + + + [...] EXTERNAL | | | | performed at [facility] [address], [address] | | LAB | | | | [address], | | | | | | [place] [address] | | | | + + + [...] EXTERNAL | | | | performed at [facility] [address], [address] | | LAB | | | | [address], | | | | | | [place] [address] | | | | + + + [...] EXTERNAL | | | | performed at [facility];[address] | | LAB | | | | [address];[place], [place] | | | | | | [address] | | | | + + + [...] | | | | | | at [facility] [address], [address] | | | | | | [facility], | | | | | | [place] [address] | | | | + + + [...] EXTERNAL | | | | performed at [facility];[address] | mmol/L | LAB | | | | [address];[place], [place] | | | | | | [address] | | | | + + + [...] EXTERNAL | | | | performed at [facility] | | LAB | | | | [address];[place] | | | | | | [address] | | | | + + + [...] (A)Comment: | | EXTERNAL | | | javid | Positive cutoff for | | LAB [...] | | | | | performed at [facility] | | | | | | [address];[place], [place] | | | | | | [address] | | | | + + + [...] | | | Fingerstick | performed at [facility];[address] | | LAB | | | | [address];[place] | | | | | | [address] | | | | + + + [...] | | | | | performed at [facility];[address] | | | | | | [address] [facility];[place], [place] | | | | | | [address] | | | | + + + [...] | | | Basophils | performed at [facility];[address] | K/uL | LAB | | | | [address];[place], [place] | | | | | | [address] | | | | + + + [...] EXTERNAL | | | | performed at [facility];[address] | | LAB | | | [address];[place] | | | | | | [address] | | | | + + + [...] EXTERNAL | | | | performed at [facility] | | LAB | | | | [facility];[place], [place] | | | | | | [address] | | | | + + + [...] EXTERNAL | | | | performed at [facility];[address] | mmol/L | LAB | | | | [address];[place], [place] | | | | | | [address] | | | | + + + [...] | | | | | | at [facility];[address] [place] [address] | | | | | | [facility];[place] [address] | | | | + + + [...] NEGATIVE Testing | | | performed at [facility];[address] [place] [address];[place] [address] | | + + + + +---------+ + + | Performing | Address | City/State/Zipcode | Phone Number | | Organization | | | | + +---------+ + + | EXTERNAL LAB | | | | + +---------+ + + documented in this encounter Visit Diagnoses Not on filedocumented in this encounter
--- OUTSIDE RECORDS SUMMARY | ~2019-03-12 | XMS | Clinical Summary ---
Demographics + + + | Address | [address] | | | [place] [address] | + + + | Home Phone | | + + + | Preferred Language | Unknown | + + + | Marital Status | Single | + + + | Mormon Affiliation | Unknown | + + + | Race | Unknown | + + + | Ethnic Group | Unknown | + + + Author + + + | Author | [facility] [employer] (Historical as of | | | 11-14-18) | + + + | Organization | [facility] [employer] (Historical as of | | | 11-14-18) | + + + | Address | Unknown | + + + | Phone | Unavailable | + + + Support + + +---------+ + | Name | Relationship | Address | Phone | + + +---------+ + | Jacquie Baeza | ECON | Unknown | | + + +---------+ + | Jess GrantRenita | KATHI | Unknown | | + + +---------+ + Care Team Providers + +------+ + | Care Freelance Web Designer Name | Role | Phone | + [...] | 09/24/2016 | + + + | [place] coma scale score 3-8, at arrival to [...] +------+-------+ + | MEDICAID | MEDICA | [id number] | | | [address] | | | [place] | | | | [place] | | | [place] | | | | [phone] | + +--------+ +------+-------+ + + +--------+ [...] | 1994 | [phone] | [place] [address] | | | hitesh | | | [birth year] | | + +--------+ +--------+ + +
--- OUTSIDE RECORDS SUMMARY | ~2019-03-12 | XMS | Encounter Summary ---
Demographics + + + | Address | [address] | | | [place] [address] | + + + | Home Phone | | + + + | Preferred Language | Unknown | + + + | Marital Status | Single | + + + | Adventism Affiliation | Unknown | + + + | Race | Unknown | + + + | Ethnic Group | Unknown | + + + Author + + + | Author | [facility] | | | and [place] | + + + | Organization | [facility] | | | and [...] Team Providers + +------+ + | Care Health Therapist Name | Role | Phone | + +------+ + PCP | Unavailable | + +------+ + Encounter Details +--------+ + + + + | Date | Type | Department | Care Team | Description | +--------+ + + + + | 09/24/ | Hospital | [facility] IP | Conversion | Diagnosis unknown | | 2016 | Encounter | CONVERSION DEP 888 | Transaction, | | | | | [place] | Provider Unknown | | | | | [place] | | | | | | [phone] | (Fax) | | | | | [...] + +--------+ + + + | CT CERVICAL SPINE WO | Routin | 09/24/2016 | | Results for this | | CONTRAST | e | 11:42 AM | | procedure are in the | | | | PDT | | results section. | + +--------+ + + + documented in this encounter Results CT Cervical Spine wo Contrast (09/24/2016 11:42 AM PDT) + [...]
--- OUTSIDE RECORDS SUMMARY | ~2019-03-12 | XMS | Clinical Summary ---
Demographics + + + | Address | [address] | | | [place] [address] | + + + | Home Phone | | + + + | Preferred Language | Unknown | + + + | Marital Status | Single | + + + | Yazidism Affiliation | Unknown | + + + | Race | Unknown | + + + | Ethnic Group | Unknown | + + + Author + + + | Author | [facility] | | | and [place] | + + + | Organization | [facility] | | | and [...] Team Providers + +------+ + | Care Senior Staff Psychologist Name | Role | Phone | + +------+ + PCP | Unavailable | + +------+ + Allergies No Known Allergies Medications Not on file Active Problems + + + | Problem | Noted Date | + + + | 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 | + + Last Filed Vital Signs + [...] | | + + + + + Plan of Treatment + + + + + | Health Maintenance | Due Date | Last Done | Comments | + + + + + | Vaccine: | | | | | Dtap/Tdap/Td (1 - | 4 | | | | Tdap) | | | | + + + + + | Vaccine: Influenza | | | | | (#1) | 9 | | | + + + + + Results Not on filefrom Last 3 Months
--- OUTSIDE RECORDS SUMMARY | ~2019-03-12 | XMS | Encounter Summary ---
Demographics + + + | Address | [address] | | | [place] [address] | + + + | Home Phone | | + + + | Preferred Language | Unknown | + + + | Marital Status | Single | + + + | Spiritism Affiliation | Unknown | + + + | Race | Unknown | + + + | Ethnic Group | Unknown | + + + Author + + + | Author | [facility] | | | and [place] | + + + | Organization | [facility] | | [...] Team Providers + +------+ + | Care Rivet Hole Machine Operator Name | Role | Phone | + +------+ + PCP | Unavailable | + +------+ + Encounter Details +--------+ + + + + | Date | Type | Department | Care Team | Description | +--------+ + + + + | 09/24/ | Hospital | [facility] GENER[facility] IP | Conversion | Diagnosis unknown | | 2016 | Encounter | CONVERSION DEP 888 | Transaction, | | | | | [place] | Provider Unknown | | | | | [place] | | | | | | [phone] | (Fax) | | | | | [...]
--- OUTSIDE RECORDS SUMMARY | ~2019-03-12 | XMS | Clinical Summary ---
Demographics + + + | Address | [address] | | | [place] [address] | + + + | Home Phone | | + + + | Preferred Language | Unknown | + + + | Marital Status | Single | + + + | Church Affiliation | Unknown | + + + | Race | Unknown | + + + | Ethnic Group | Unknown | + + + Author + + + | Author | [facility] (Historical as of | | | 11-14-18) | + + + | Organization | [facility] (Historical as of | | | 11-14-18) [...] Team Providers + +------+ + | Care It Risk Analyst Name | Role | Phone | [...] | 09/24/2016 | + + + | [place] coma scale score 3-8, at arrival to [...] +------+-------+ + | MEDICAID | MEDICA | [id number] | | | [address] | | | [place] | | | | [place] | | | [place] | | | | [phone] | + +--------+ +------+-------+ + + +--------+ [...] | 1994 | [phone] | [place] [address] | | | hitesh | | | [birth year] | | + +--------+ +--------+ + +
--- OUTSIDE RECORDS SUMMARY | ~2019-03-12 | XMS | Encounter Summary ---
Demographics + + + | Address | [address] | | | [place] [address] | + + + | Home Phone | | + + + | Preferred Language | Unknown | + + + | Marital Status | Single | + + + | Anabaptist Affiliation | Unknown | + + + | Race | Unknown | + + + | Ethnic Group | Unknown | + + + Author + + + | Author | [facility] | | | and [place] | + + + | Organization | [facility] | | | and [...] Team Providers + +------+ + | Care Drivematic Machine Operator Name | Role | Phone | + +------+ + PCP | Unavailable | + +------+ + Encounter Details +--------+ + + + + | Date | Type | Department | Care Team | Description | +--------+ + + + + | 09/24/ | Hospital | [facility] | Conversion | Diagnosis unknown | | 2016 | Encounter | CONVERSION DEP 888 | Transaction, | | | | | [place] | Provider Unknown | | | | | [place] | | | | | | [phone] | (Fax) | | | | | [...]
--- OUTSIDE RECORDS SUMMARY | ~2019-03-12 | XMS | Clinical Summary ---
Demographics + + + | Address | [address] | | | [place] [address] | + + + | Home Phone | | + + + | Preferred Language | Unknown | + + + | Marital Status | Single | + + + | Uatsdin Affiliation | Unknown | + + + | Race | Unknown | + + + | Ethnic Group | Unknown | + + + Author + + + | Author | [facility] | | | and [place] | + + + | Organization | [facility] | | | and [...] Team Providers + +------+ + | Care Actuarial Science Professor Name | Role | Phone | + [...]
--- OUTSIDE RECORDS SUMMARY | ~2019-03-12 | XMS | Encounter Summary ---
Demographics + + + | Address | [address] | | | [place] [address] | + + + | Home Phone | | + + + | Preferred Language | Unknown | + + + | Marital Status | Single | + + + | Sikh Affiliation | Unknown | + + + | Race | Unknown | + + + | Ethnic Group | Unknown | + + + Author + + + | Author | [facility] | | | and [place] | + + + | Organization | [facility] | | | [...] Team Providers + +------+ + | Care Supervisor Rod Placing Name | Role | Phone | + +------+ + PCP | Unavailable | + +------+ + Encounter Details +--------+ + + + + | Date | Type | Department | Care Team | Description | +--------+ + + + + | 09/24/ | Hospital | [facility] | Conversion | Diagnosis unknown | | 2016 | Encounter | CONVERSION DEP 888 | Transaction, | | | | | [place] | Provider Unknown | | | | | [place] | | | | | | [phone] | (Fax) | | | | | [...]
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
== END 2019-03-12 18:08 | disposition home or self-care (01) ==
LOC: ED 16:22
DX: F10.20 Alcohol dependence, uncomplicated (principal); Y90.8 Blood alcohol level of 240 mg/100 ml or more
CPT/HCPCS: 80053; 80176; 85025; 99284; G0480

== ENCOUNTER 2020-08-23 02:24 | Emergency (ER) | payer OTHER ==
[~2020-08-23] VITALS: Ht 182.9 cm; Wt 86.2 kg
--- NOTE | 2020-08-24 12:37 | EKG ---
[facility] [address] [place], [place] [address] Signed Normal sinus rhythm Prolonged QT Abnormal ECG Confirmed by LANA PALM DO ([id number]) on 08/24/2020 12:37:05 PM Electronically Signed By: LANA PALM DO 08/24/20 1237 PATIENT NAME: KAROLINA JACOBO Electrocardiogram DATE OF : [birth year] PHYSICIAN: LANA PALM DO REPORT #: [id number] REPORT IS CONFIDENTIAL AND NOT TO BE RELEASED WITHOUT AUTHORIZATION
== END 2020-08-24 13:45 ==
LOC: ED 02:24
DX: S51.812A Laceration without foreign body of left forearm, initial encounter (principal); S51.811A Laceration without foreign body of right forearm, initial encounter; F10.10 Alcohol abuse, uncomplicated; F15.10 Other stimulant abuse, uncomplicated; Y90.4 Blood alcohol level of 80-99 mg/100 ml; X78.9XXA Intentional self-harm by unspecified sharp object, initial encounter; Z20.822 Contact with and (suspected) exposure to COVID-19
CPT/HCPCS: 12002; 80053; 80176; 81001; 84443; 85025; 93005; 93010; 99285-25; C9803; U0003